=== PATIENT | female | born 1950 | race Two or more races ===

== ENCOUNTER 2017-02-02 11:02 | Day surgery (SDC) | payer OTHER ==
[~2017-02-02] VITALS: Ht 157.5 cm; Wt 69.4 kg
[~2017-02-02 11:02] MED LIST: AMIODARONE HCL200 MG PO; ELIQUIS5 MG PO; PRILOSEC20 MG PO; SIMVASTATIN40 MG PO; VITAMIN D31000 UNIT PO
[2017-02-02 12:14] LABS: HEMATOCRIT 37.9 % (36.0-46.0); MCH 30.4 PG (29.0-34.0); MCHC 32.5 G/DL (30.0-36.0); MCV 93.8 FL (83-99); MEAN PLAT.VOLUME 10.7 uM^3 (9.5-12.4); PLATELET COUNT 224 K/uL (156-360); RBC DIS.WIDTH-CV 13.2 % (11.8-14.6); RBC DIS.WIDTH-SD 45.2 % (39-53); RED BLOOD COUNT 4.04 M/uL (3.80-5.20); WHITE BLOOD COUNT 4.3 K/uL (4.1-10.2)
[2017-02-02 13:05] LABS: ANION GAP 8 MEQ/L (2-14); CHLORIDE 107 MEQ/L (99-109); GFR ESTIMATE (CALCULATED) > 59 mL/min/; GLUCOSE 91 mg/dL (70-99); POTASSIUM 3.8 MEQ/L (3.7-5.4); SAMPLE HEMOLYSIS CHECK 0; SAMPLE ICTERIC CHECK 0; SAMPLE LIPEMIA CHECK 0; SODIUM 141 MEQ/L (136-147); UREA NITROGEN (BUN) 17 mg/dL (9-23)
== END 2017-02-02 18:55 | disposition home or self-care (01) ==
LOC: CATH 11:02 → EDBD 11:02 → CATH 13:30
PROVIDERS: Internal Medicine Cardiovascular Disease
DX: I20.8 Other forms of angina pectoris (principal); I10 Essential (primary) hypertension; I48.91 Unspecified atrial fibrillation; E78.00 Pure hypercholesterolemia, unspecified; Z87.891 Personal history of nicotine dependence
CPT/HCPCS: 80048; 85027; C1769; C1887; J1644; J2250; J3010